=== PATIENT | male | born 1960 | race Caucasian/White ===

== ENCOUNTER 2020-09-07 14:57 | Day surgery (SDCO) | payer MEDICARE, OTHER ==
[~2020-09-07 14:57] MED LIST: AMIODARONE HCL200 MG PO; ASPIRIN CHEWABL81 MG PO; ATORVASTATIN CA80 MG PO; BENADRYL25 MG PO; BRILINTA90 MG PO; CARVEDILOL 1212.5 MG PO; ELIQUIS5 MG PO; FLONASE ALLER15.8 ML; HYDREA500 MG PO; KEFLEX500 MG PO; LIPITOR40 MG PO; NORCO 5-325 TA1 EACH PO; PROTONIX 40MG T40 MG PO; SEROQUEL 25MG T25 MG PO; SINGULAIR10 MG PO; ZYRTEC10 MG PO
[2020-09-07 16:10] LABS: BASOPHIL 0.5 % (0-2); EOSINOPHIL 2.1 % (0-5); HCT 46.9 % (42.0-52.0); HGB 15.8 g/dl (13.2-18.0); LYMPHOCYTE 22.7 % (15-48); MCH 34.3 pg (25.0-31.0); MCHC 33.7 g/dL (32.0-36.0); MCV 101.7 fL (78.0-100.0); MONOCYTE 10.9 % (0-12); MPV 10.5 fL (6.0-9.5); NEUTROPHIL 63.1 % (41-80); NRBC 0; PLT 504 K/uL (150-400); RBC 4.61 M/uL (4.70-6.00); RDW 12.8 % (11.5-14.0); WBC 5.6 K/uL (4.0-10.5)
[2020-09-07 16:15] LABS: INR 1.25 (0.9-1.2); PROTHROMBIN TIME 14.9 SECONDS (11.4-13.6)
[2020-09-07 16:16] LABS: PTT 36.7 SECONDS (22.2-34.7)
[2020-09-07 16:17] LABS: D-DIMER 0.36 ug/mLFEU (0.00-0.41)
[2020-09-07 16:25] LABS: ALBUMIN 3.9 g/dL (3.4-5.0); BILIRUBIN - TOTAL 1.1 mg/dL (0.2-1.0); BUN/CREAT RATIO (CALC) 21.7 RATIO; CREATININE 1.06 mg/dL (0.67-1.17); GLOBULIN (CALCULATION) 2.7 g/dL; POTASSIUM 4.2 mmol/L (3.5-5.1); TOTAL PROTEIN 6.6 g/dL (6.4-8.2)
[2020-09-07 16:37] LABS: CKMB 1.3 ng/mL (0.0-3.6)
[2020-09-07] MEDS ORDERED: COREG 6.25MG6.25 MG PO (18:24)
[2020-09-08 06:01] LABS: BASOPHIL 0.7 % (0-2); EOSINOPHIL 3.4 % (0-5); HCT 45.9 % (42.0-52.0); HGB 15.3 g/dl (13.2-18.0); LYMPHOCYTE 29.7 % (15-48); MCH 33.8 pg (25.0-31.0); MCHC 33.3 g/dL (32.0-36.0); MCV 101.3 fL (78.0-100.0); MONOCYTE 10.8 % (0-12); MPV 10.2 fL (6.0-9.5); NEUTROPHIL 54.9 % (41-80); NRBC 0; PLT 401 K/uL (150-400); RBC 4.53 M/uL (4.70-6.00); RDW 13.1 % (11.5-14.0); WBC 4.1 K/uL (4.0-10.5)
[2020-09-08 06:19] LABS: BUN/CREAT RATIO (CALC) 18.3 RATIO; CREATININE 1.09 mg/dL (0.67-1.17); POTASSIUM 3.8 mmol/L (3.5-5.1)
--- NOTE | 2020-09-08 10:16 | NUR ---
PT. IS OBS. PLEASE CONSIDER INPT OR D/C. THANKS....
[2020-09-08] MEDS ORDERED: IMDUR 30MG TABL30 MG PO (10:20)
[2020-09-08] MEDS ORDERED: NITROGLYCERIN0.4 MG SL (10:20)
== END 2020-09-08 11:01 | disposition home or self-care (01) ==
LOC: FER 14:57 → FMS 17:04
PROVIDERS: Emergency Medicine; ADMIT Internal Medicine
DX: R07.89 Other chest pain (principal); R06.02 Shortness of breath; I25.10 Atherosclerotic heart disease of native coronary artery without angina pectoris; I48.0 Paroxysmal atrial fibrillation; I10 Essential (primary) hypertension; K21.9 Gastro-esophageal reflux disease without esophagitis; E78.5 Hyperlipidemia, unspecified; G47.00 Insomnia, unspecified; D47.3 Essential (hemorrhagic) thrombocythemia; I25.2 Old myocardial infarction; Z87.820 Personal history of traumatic brain injury; Z79.01 Long term (current) use of anticoagulants; Z79.82 Long term (current) use of aspirin; Z79.899 Other long term (current) drug therapy; Z95.5 Presence of coronary angioplasty implant and graft; Z20.822 Contact with and (suspected) exposure to COVID-19
CPT/HCPCS: 36415; 71045; 80048; 80053; 82553; 84484; 85025; 85379; 85610; 85730; 93005; G0378; U0002

== ENCOUNTER 2021-07-25 18:47 | Inpatient (IN) | payer MEDICARE, OTHER ==
[~2021-07-25] VITALS: Ht 182.9 cm; Wt 111.1 kg
[~2021-07-25 18:47] MED LIST changes: +COREG 6.25MG6.25 MG PO; +IMDUR 30MG TABL30 MG PO; +NITROGLYCERIN0.4 MG SL
[2021-07-25 19:34] LABS: BASOPHIL 0.7 % (0-2); EOSINOPHIL 1.2 % (0-5); HCT 46.2 % (42.0-52.0); HGB 16.2 g/dl (13.2-18.0); LYMPHOCYTE 14.7 % (15-48); MCH 38.5 pg (25.0-31.0); MCHC 35.1 g/dL (32.0-36.0); MCV 109.7 fL (78.0-100.0); MPV 10.9 fL (6.0-9.5); NEUTROPHIL 75.1 % (41-80); NRBC 0; PLT 389 K/uL (150-400); RBC 4.21 M/uL (4.70-6.00); RDW 11.6 % (11.5-14.0); WBC 8.2 K/uL (4.0-10.5)
[2021-07-25 19:50] LABS: ALBUMIN 4.4 g/dL (3.4-5.0); BILIRUBIN - TOTAL 0.8 mg/dL (0.2-1.0); BUN/CREAT RATIO (CALC) 20.9 RATIO; CREATININE 1.15 mg/dL (0.67-1.17); GLOBULIN (CALCULATION) 3.3 g/dL; POTASSIUM 3.8 mmol/L (3.5-5.1); TOTAL PROTEIN 7.7 g/dL (6.4-8.2)
[2021-07-25 19:55] LABS: INR 1.2 (0.9-1.2); PROTHROMBIN TIME 14.6 SECONDS (11.8-13.4)
[2021-07-25 19:56] LABS: PTT 29.7 SECONDS (24.4-34.7)
[2021-07-25 21:31] LABS: CORONAVIRUS 2019 SARS-COV-2 NEGATIVE (NEGATIVE); INFLUENZA A NAA NEGATIVE (NEGATIVE)
[2021-07-26 05:09] LABS: BASOPHIL 0.7 % (0-2); EOSINOPHIL 1.6 % (0-5); HCT 40.7 % (42.0-52.0); HGB 14.4 g/dl (13.2-18.0); LYMPHOCYTE 25.4 % (15-48); MCH 38.9 pg (25.0-31.0); MCHC 35.4 g/dL (32.0-36.0); MONOCYTE 9.4 % (0-12); MPV 10.5 fL (6.0-9.5); NEUTROPHIL 62.4 % (41-80); NRBC 0; PLT 249 K/uL (150-400); RDW 11.6 % (11.5-14.0); WBC 4.3 K/uL (4.0-10.5)
[2021-07-26 05:55] LABS: BUN/CREAT RATIO (CALC) 19.4 RATIO; CREATININE 1.03 mg/dL (0.67-1.17); POTASSIUM 3.6 mmol/L (3.5-5.1)
--- NOTE | 2021-07-26 13:17 | NUR ---
07/26/21 Patient will be transferred to [facility].
--- NOTE | 2021-07-27 06:52 | NUR ---
PATIENT TRANSFERING TO [facility] BY EMS. SAFETLY LOADED ONTO STRETCHER. SENT ALL BELONGINGS WITH PATIENT. PATIENT NOT IN ANY DISTRESS. SENT PAPER WORK WITH EMS.
== END 2021-07-27 06:30 | disposition other institution (70) | DRG 281 ==
LOC: FER 18:47 → FTCU 23:12
PROVIDERS: Nurse Practitioner; Nurse Practitioner Family; ADMIT Internal Medicine
DX: I21.4 Non-ST elevation (NSTEMI) myocardial infarction (principal); D68.8 Other specified coagulation defects; D53.9 Nutritional anemia, unspecified; I10 Essential (primary) hypertension; Z20.822 Contact with and (suspected) exposure to COVID-19; I25.10 Atherosclerotic heart disease of native coronary artery without angina pectoris; I48.0 Paroxysmal atrial fibrillation; E78.5 Hyperlipidemia, unspecified; D75.839 Thrombocytosis, unspecified; K21.9 Gastro-esophageal reflux disease without esophagitis; G47.00 Insomnia, unspecified; J30.9 Allergic rhinitis, unspecified; Z95.5 Presence of coronary angioplasty implant and graft; Z90.89 Acquired absence of other organs; Z98.52 Vasectomy status; Z82.49 Family history of ischemic heart disease and other diseases of the circulatory system; Z79.01 Long term (current) use of anticoagulants; Z79.82 Long term (current) use of aspirin; Z79.899 Other long term (current) drug therapy; Z86.16 Personal history of COVID-19
CPT/HCPCS: 36415; 70450; 71046; 80048; 80053; 80061; 84484; 85025; 85610; 85730; 93005; J1644; J7030; U0002